=== PATIENT | female | born 1955 | race Caucasian/White ===

== ENCOUNTER → 2022-12-27 | Outpatient (CLI) | payer MEDICARE ==
--- NOTE | 2022-12-27 18:44 | BD ---
EXAMINATION TYPE: Axial Bone Density DATE OF EXAM: 12/27/2022 CLINICAL HISTORY: 67 years old Female. ICD-10 CODE: M85.851 OSTEOPENIA RIGHT HIP Height: 63 Weight: 166.1 FRAX RISK QUESTIONS: Alcohol (3 or more units per day): no Family History (Parent hip fracture): no Glucocorticoids (More than 3mos): no (Ex: prednisone, prednisolone, methylprednisolone, dexamethasone, and hydrocortisone). History of Fracture in Adulthood: no Secondary Osteoporosis: 1. Type 1 Diabetes: no 2. Hyperthyroidism: no 3. Menopause before 45: no 4. Malnutrition: no 5. Chronic liver disease: no Rheumatoid Arthritis: no Current Tobacco Use: no RISK FACTORS HISTORY OF: Surgery to Spine/Hip(right/left)/Wrist (right/left): no Family History of Osteoporosis: no Active: yes Diet low in dairy products/other sources of calcium: no Postmenopausal woman: yes Lost more than 2 inches in height since high school: no MEDICATIONS: Additional History: EXAM MEASUREMENTS: Bone mineral densitometry was performed using the [employer]. Bone mineral density as measured about the Lumbar spine is: ----- L1-L4(G/cm2): 1.114 T Score Values are as follows: ----- L1: -1.3 ----- L2: -0.9 ----- L3: -0.4 ----- L4: -0.1 ----- L1-L4: -0.5 Z Score Values are as follows: ----- L1: 0.0 ----- L2: 0.3 ----- L3: 0.9 ----- L4: 1.2 ----- L1-L4: 0.7 Bone mineral density : baseline Bone mineral density about the R hip (g/cm2): 0.969 Bone mineral density about the L hip (g/cm2): 0.981 T Score values are as follows: -----R Neck: -1.4 -----L Neck: -1.4 -----R Total: -0.3 -----L Total: -0.2 Z Score values are as follows: -----R Neck: -0.1 -----L Neck: -0.1 -----R Total: 0.7 -----L Total: 0.8 Bone mineral density : baseline FRAX%s: The graph provided illustrates a 8.9% chance for a major osteoporotic fx and a 0.9% chance fo r the hips probability for fx in 10 years time. IMPRESSION: Osteopenia (T Score between -2.5 and -1). There is slightly increased risk of fracture and the patient may be considered for treatment. Re-Screen 2-5 years. NOTE: T-SCORE=SD OF THE YOUNG ADULT MEAN.
== END | disposition home or self-care (01) ==
LOC: RADBDWWP 09:00
PROVIDERS: ATTEND Internal Medicine
DX: M85.89 Other specified disorders of bone density and structure, multiple sites (principal); Z78.0 Asymptomatic menopausal state
CPT/HCPCS: 77080

== ENCOUNTER → 2023-09-14 | Outpatient (CLI) | payer MEDICARE ==
--- NOTE | 2023-09-14 15:17 | XR ---
EXAMINATION TYPE: XR cervical spine comp DATE OF EXAM: 09/14/2023 COMPARISON: NONE HISTORY: Pain TECHNIQUE: Four views are submitted. FINDINGS: The odontoid is intact. There are no compression deformities. The prevertebral soft tissue structur es are within normal limits. Severe degenerative disc disease C5-6 and moderate changes at C6-7 and C7-T1. Posterior spurring at C5-C6. Grade 1 anterolisthesis C4-C5. Foraminal encroachment at C5-C6 an d C6-C7 bilaterally. Straightening of the cervical lordosis. IMPRESSION: 1. Multilevel degenerative disc disease most marked at C5-C6 with multilevel foraminal encroachment.
--- NOTE | 2023-09-14 15:22 | XR ---
EXAM TYPE: LUMBAR SPINE X RAY SERIES COMPARISON: NONE HISTORY: Pain TECHNIQUE: 4 views are submitted. FINDINGS: Alignment is anatomic. The pedicles are intact. The transverse processes are intact. There is gene ralized demineralization with slight curvature to the spine. Mild hypertrophic arthropathy SI joints. There is multilevel degenerative disc disease most marked at L4-5 and L5-S1. Facet arthropathy from L 2 L3-S1 likely results in the foraminal encroachment. Vascular calcifications noted. IMPRESSION: 1. Multilevel degenerative disc disease with moderate to severe changes L4-5 and L5-S1. 2. Advanced facet arthropathy L3-S1 with suspected foraminal encroachment.
== END | disposition home or self-care (01) ==
LOC: RADXRMAIN 14:37
PROVIDERS: ATTEND Internal Medicine
DX: M50.322 Other cervical disc degeneration at C5-C6 level (principal); M51.37 Other intervertebral disc degeneration, lumbosacral region; M47.817 Spondylosis without myelopathy or radiculopathy, lumbosacral region
CPT/HCPCS: 72050; 72100

== ENCOUNTER → 2024-01-09 | Outpatient (CLI) | payer MEDICARE ==
[~2024-01-09] MED LIST: IODINE/POTASSIUM IODIDE 14 ML BOTTLE ONE
--- NOTE | 2024-01-10 15:04 | NM ---
EXAMINATION TYPE: NM DatScan Brain SPECT DATE OF EXAM: 01/09/2024 COMPARISON: NONE HISTORY: Trauma TECHNIQUE: 10 drops of Lugol's solution was administered 1 hour prior to injection as a thyroid bloc ko agent. After the administration of 4.3 mCi I-123 Ioflupane DaTscan. Images obtained [address] injection. SPECT images of the brain were acquired with axial and coronal reconstructions. FINDINGS: The axial SPECT images demonstrate normal background activity. Accounting for head tilt, t here appears to be slight asymmetrically blunted comma-shaped appearance of the right corpus striatum . Z score analysis was performed. IMPRESSION: Slightly blunted striatal activity on the right may indicate changes of idiopathic Parki nson's disease or Parkinsonian syndrome. [facility], , 01/10/2024 3:02 PM
== END | disposition home or self-care (01) ==
LOC: RADNMMAIN 10:20
PROVIDERS: ATTEND Internal Medicine
DX: G20.A1 Parkinson's disease without dyskinesia, without mention of fluctuations (principal)
CPT/HCPCS: 78803